=== PATIENT | male | born 1985 | race African-American/Black ===

== ENCOUNTER 2018-12-19 15:19 | Emergency (ER) | payer OTHER ==
[~2018-12-19] VITALS: Ht 185.4 cm; Wt 113.6 kg
[2018-12-19 15:26] VITALS: Ht 185.4 cm; Wt 113.6 kg
[2018-12-19] MEDS ORDERED: ALBUTEROL SULF8.5 GM INH (15:28)
[2018-12-19] MEDS ORDERED: ADDERALL 30 MG30 MG PO (15:28)
[2018-12-19] MEDS ORDERED: FLUTICASONE PRO16 GM NASAL (15:28)
[2018-12-19] MEDS ORDERED: PREVACID15 MG PO (15:29)
[2018-12-19] MEDS ORDERED: TORADOL10 MG PO (16:02)
[2018-12-19 16:52] VITALS: BP 107/64
== END 2018-12-19 16:53 | disposition home or self-care (01) ==
LOC: D.ER 15:19
DX: M25.562 Pain in left knee (principal)

== ENCOUNTER 2018-12-30 16:44 | Emergency (ER) | payer OTHER ==
[~2018-12-30] VITALS: Ht 185.4 cm; Wt 113.6 kg
[~2018-12-30 16:44] MED LIST: ADDERALL 30 MG30 MG PO; ALBUTEROL SULF8.5 GM INH; FLUTICASONE PRO16 GM NASAL; PREVACID15 MG PO; TORADOL10 MG PO
[2018-12-30 16:46] VITALS: Ht 185.4 cm; Wt 113.6 kg
[2018-12-30 17:09] LABS: BASOPHILS 0.6 % (0-2); HEMOGLOBIN 14.2 g/dL (13.5-17.5); IMMATURE GRANULOCYTES 0.7 % (0-5); LYMPHOCYTES 17.6 % (15-50); MCH 32.1 pg (26.0-34.0); MCHC 35.5 g/dL (31.0-37.0); MCV 90.5 fL (80.0-100.0); MEAN PLATELET VOLUME 8.7 fL (7.4-10.4); MONOCYTES 8.2 % (2-11); NEUTROPHILS 66.9 % (40-80); PLATELET COUNT 256 10x3/uL (130-400); RBC 4.42 10x6/uL (4.20-6.10); RDW 12.7 % (11.5-14.5); WBC 10.7 10x3/uL (4.8-10.8)
[2018-12-30 17:33] LABS: ALKALINE PHOSPHATASE 66 U/L (46-116); ALT (SGPT) 19 U/L (10-68); BILIRUBIN - TOTAL 0.56 mg/dL (0.2-1.3); CARBON DIOXIDE 30.4 mmol/L (21.0-32.0); GLUCOSE 93 mg/dL (74-106); PROTEIN - SERUM 6.1 g/dL (6.4-8.2); UREA NITROGEN 8 mg/dL (7-18)
[2018-12-30 17:41] LABS: ALBUMIN 2.7 g/dL (3.4-5.0); CALC OSMOLALITY 276 mosm/kg (275-300); CALCIUM 8.1 mg/dL (8.5-10.1); CHLORIDE - SERUM 103 mmol/L (98-107); POTASSIUM - SERUM 3.2 mmol/L (3.5-5.1); SODIUM 140 mmol/L (136-145); eGFR NON AFRICAN AMERICAN > 90 mL/min (90-120)
[2018-12-30] MEDS ORDERED: ALBUTEROL SULF8.5 GM INH (19:40)
[2018-12-30] MEDS ORDERED: ZPAK PO (19:40)
[2018-12-30] MEDS ORDERED: MUCINEX DM ER1 EAC1 PO (19:40)
[2018-12-30 20:22] VITALS: BP 122/71
== END 2018-12-30 20:22 | disposition home or self-care (01) ==
LOC: D.ER 16:44
PROVIDERS: Emergency Medicine
DX: J18.9 Pneumonia, unspecified organism (principal)